=== PATIENT | female | born 1990 | race Caucasian/White ===

== ENCOUNTER → 2016-12-17 | Outpatient (CLI) | payer OTHER | LOC: MOB LAB 09:22 | PROVIDERS: ATTEND Physician Assistant Medical | DX: L29.8 Other pruritus (principal) | CPT/HCPCS: 87480; 87510; 87660 ==

== ENCOUNTER 2018-08-30 17:13 | Inpatient (IN) ==
[2018-08-30] MEDS ORDERED: Sodium Chloride 0.9% 1,000 ML PRIMARY IV ONE (17:29)
[2018-08-30] MEDS ORDERED: MORPHINE SULFATE 2 MG/1 ML IVP ONE (17:29)
[2018-08-30] MEDS ORDERED: ONDANSETRON 4 MG/2 ML VIAL IVP ONE (17:29)
--- NOTE | 2018-08-30 17:29 | PDOC ---
Abdomen/Flank HPI - General Chief Complaint: Abdomen Pain Stated Complaint: ABD PAIN, BLOATING Date Seen by Provider: 08/30/18 Time Seen by Provider: 17:25 Source: POSITIVE: Patient Exam Limitations: POSITIVE: No limitations Nurse's Notes Reviewed & Considered: Yes - History of Present Illness Initial Comments: The patient is a 28-year-old female who presents to the emergency department with complaints of increased abdominal pain and bloating. She does have a history of Crohn's and has required previous resection of the terminal ileum and cecum in 2013. She was recently started on a new medication for her Crohn's. She states that she started to develop some increased abdominal pain 3 or 4 days ago. This has progressively worsened and she has become progressively more bloated. She did have one episode of emesis earlier today. She also reported some low-grade fever with a temperature of 99.7 at home. She denies any blood in the stool however states that she has a lot of cramping and often times only has a small amount of stool. She denies urinary symptoms. Other than the previous bowel resection, she has not had any other abdominal surgeries. She states that she has not experienced pain to this level since she had her original surgery. She currently rates her pain an 8 out of 10. - Patient Home Medications Home Medications: Home Medications Ustekinumab [Stelara] 130 mg IV ONCE 08/30/18 - Patient Allergies Allergies/Adverse Reactions: Allergies Allergy/AdvReac Type Severity Reaction Status Date / Time No Known Allergies Allergy Verified 08/30/18 17:25 Past Medical History - heen HEENT History: Denies History Cardiovascular History: Denies History Respiratory History: Denies History Gastrointestinal History: Crohn's Genitourinary History: Denies History Endocrine History: Denies History Musculoskeletal History: Denies History Prosthesis or Implant: No Neurological History: Denies History Blood Disorders: Denies History Psychiatric History: Denies History Cancer History: Denies History History of MDRO: No Alcohol Use: Rarely In the Past 12 Months, Have Used or Abuse Any Substance: None Previous Surgical History: Yes Type / Date of Surgery: "ileostomy" with removal of parts of colon, no bag. Likely a Resection. Anesthesia Reactions: No Malignant Hyperthermia: No Significant Family History: No pertinent family hx Past Medical History Reviewed: Reviewed - No Changes ROS - Limitations ROS Limitations: No Limitations Constitution: REPORTS: Fever (Temp of 99.7 at home) Cardiovascular: REPORTS: Denies Cardiac Symptoms Respiratory: REPORTS: Denies Resp Symptoms Neurological: REPORTS: Denies Neuro Symptoms Gastrointestinal: REPORTS: Abdominal Pain, Nausea, Vomitting, Other (Bloating). DENIES: Diarrhea, Black Stools, Bloody Stools Musculoskeletal: REPORTS: Denies MS Symptoms Genitourinary: REPORTS: Denies Symptoms Eyes: REPORTS: Denies Symptoms ENT: REPORTS: Denies Symptoms Skin: DENIES: Rash Abdominal/Flank Pain PE - General Appearance General Appearance: POSITIVE: Alert, Cooperative, No Acute Distress - HEENT HEENT: POSITIVE: Head Inspection Nml, Eyes Inspection Nml, Ears Inspection Nml, Nose Inspection Nml, Pharynx Inspect. Nml - Neck Neck: POSITIVE: Normal Inspection. NEGATIVE: Lymphadenopathy - Respiratory Respiratory: POSITIVE: No Respiratory Distress, Breath Sounds Normal - Cardiovascular Cardiovascular: POSITIVE: Regular Rate and Rhythm, Heart Sounds Normal Peripheral Pulses: Dorsalis-pedis (R): 2+, Dorsalis-pedis (L): 2+ - Abdomen Additional Abdominal Details: The patient's abdomen is soft, she does have diffuse abdominal tenderness which is most prominent in the right mid abdomen, no guarding or rebound tenderness, bowel sounds are present although hypoactive. 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 Lab Results Reviewed by Me: Yes CBC and BMP: 08/30/18 17:24 08/30/18 17:24 - Patient's Progress MDM / ED Course: The patient was rating her pain an 8 out of 10 on arrival. Her vital signs were otherwise unremarkable. An IV was established and she did receive 1 L bolus of normal saline as well as morphine 2 mg IV and Zofran 4 mg IV for pain and nausea. She did have some mild relief in pain with administration of medications. Blood work reveals a white count of 13,000 and CRP of 1.4. Other blood tests are essentially unremarkable. CT scan of the abdomen and pelvis shows thickened mucosal with decreased lumen diameter of the bowel in the rectum and distal sigmoid colon with associated dilated and fluid-filled colon and distal small bowel per radiologist. Findings were discussed with the patient. Her CT findings are consistent with a Crohn's flare in the rectum and distal sigmoid colon with associated partial obstruction. The patient was able to pass some liquid stool after her CT scan. The patient was discussed with Dr. Pimentel. He recommended medical management. I subsequently spoke with Dr. Lopez and he evaluated the patient here in the emergency department and has made the decision to admit her for further treatment. - Consult Counseled: POSITIVE: Patient, Family, RE: Lab Results, RE: Radiology Results, RE: DX, RE: Need for F/U Patient Care Time - Estimated PCT Patient Care Time (In Minutes): 35 Vital Signs - VS Reviewed Vital Signs Reviewed: Yes Discharge Clinical Impression: Abdominal pain Crohn's disease Qualifiers: Gastrointestinal tract location: small intestine Digestive disease complication type: unspecified complication Qualified Code(s): K50.019 - Crohn's disease of small intestine with unspecified complications Condition: Fair Date Decision to Admit to Inpatient: 08/30/18 Time Decision to Admit to Inpatient: 20:00
[2018-08-30 17:35] LABS: BASOPHILS # (AUTO) 0.03 10*3/UL; BASOPHILS % (AUTO) 0.2 % (0-1); EOSINOPHILS # (AUTO) 0.05 10*3/UL; EOSINOPHILS % (AUTO) 0.4 % (0-8); Hematocrit [HCT] 47.8 % (37.0-47.0); Hemoglobin [HGB] 16.3 g/dL (12.0-16.0); MEAN CORPUSCULAR HEMOGLOBIN 27.6 PG (27-31); MEAN CORPUSCULAR HGB CONC 34.1 g/dL (33-37); MONOCYTES % (AUTO) 5.2 % (5-15); NEUTROPHILS % (AUTO) 83.6 % (50-80)
[2018-08-30 17:43] LABS: BLOOD UREA NITROGEN 15 mg/dL (7-22); BUN/CREATININE RATIO 18.75 (6-20); LIPASE 116 IU/L (23-300); SERUM ALBUMIN 5.2 g/dL (3.5-4.8)
[2018-08-30 18:04] LABS: PLATELET MORPHOLOGY COMMENT NORMAL MORPHOLOGY (NORM); RBC MORPHOLOGY COMMENT NORMAL MORPHOLOGY (NORM); WBC MORPHOLOGY COMMENT NORMAL MORPHOLOGY (NORM)
[2018-08-30 18:51] LABS: BILIRUBIN,URINE NEGATIVE (NEG); CLARITY,URINE CLEAR (CLEAR); COLOR,URINE YELLOW (Y); GLUCOSE, URINE (UA) NEGATIVE (NEG); OCCULT BLOOD,URINE NEGATIVE (NEG); PROTEIN,URINE NEGATIVE (NEG); UROBILINOGEN,URINE 0.2 EU/dL (0.2)
[2018-08-30 18:52] LABS: URINE SAMPLE TYPE CLEAN CATCH URINE
--- NOTE | 2018-08-30 19:17 | DI ---
CT ABDOMEN SCAN WITH IV CONTRAST, 08/30/2018 5:30 PM : Clinical History: Abdominal pain. According to my discussion with the emergency room physician, this patient has a diagnosis of Crohn's disease and apparently had resection of the distal/terminal ileum and cecum/proximal ascending colon for Crohn's disease. Previous Exam: None at this facility. IV Contrast: 70 mL of Isovue 300. Oral Contrast: No oral contrast ordered. Rectal Contrast: No rectal contrast ordered. Lungs: No infiltrate or effusion. Liver: Normal. Gallbladder: There are 2 laminated calculi measuring about 10 mm in diameter without evidence of acut e cholecystitis. Stomach: The stomach and proximal small bowel up to the junction between the jejunum and ileum are co mpletely decompressed. Adrenal Glands: Normal. Spleen: Mild splenomegaly. Pancreas: Normal. Kidneys: Normal size, shape, position and contour. No hydronephrosis or hydroureter. No renal or uret eral calculi. Masses: None. Lymph Nodes: Normal. Ascites: No ascites. Free Air: None. Spine: Normal lower thoracic and lumbar spine. READING: The stomach and small bowel from the duodenum to the jejunum are completely decompressed. The ileum i s described below but is abnormal. The remainder of the exam is normal. CT PELVIS SCAN WITH IV CONTRAST, 08/30/2018 5:30 PM: Clinical History: See above. Previous Exam: None at this facility. Contrast: Same bolus used for CT scans of the abdomen. Masses: No masses or enhancing lesions. Ascites: None. Free Air: None. Lymph Nodes: No adenopathy. Appendix: Status post apparent resection of the cecum or proximal ascending colon with anastomosis to the distal ileum. Small Bowel: As noted above, the duodenum and jejunum are completely decompressed. The ileum to the a nastomosis is dilated and filled with fluid. No abnormal bowel wall enhancement is noted. Colon: The entire remaining portion of the colon is completely filled with fluid to the sigmoid-recto sigmoid junction and those portions of colon do not show any abnormal enhancement. The rectosigmoid a nd rectum show enhancement of the mucosa along with thickening of the bowel wall producing a "rigid" appearance. This enhancement and bowel wall thickening is consistent with active Crohn's disease. Uterus: Small but normal. Ovaries: There may be a 3 cm cyst of the left ovary. The right ovary is normal. Bladder: Normal. Hernias: None. Bony Pelvis: Normal sacrum, pelvic bones, and hips. READIN. Abnormal enhancement of the rectal and rectosigmoid mucosa with thickening of the bowel wall and narrowing of the lumen producing a "rigid" appearance of that section of large bowel. These changes w ould represent active inflammatory bowel disease consistent with the clinical diagnosis of Crohn's di sease. 2. There is complete filling of the ileum and the colon with fluid with complete decompression of th e stomach, duodenum, and jejunum. Presumably, the active site of Crohn's disease is preventing perist alsis in the rectosigmoid and rectum causing this retention of fluid in the colon and ileum. 3. Probable 3 cm cyst of the left ovary.
--- NOTE | 2018-08-30 20:31 | PDOC ---
HPI - History of Present Illness Date of Service: 08/30/18 Time of Service: 20:26 Chief Complaint: abdominal pain History of Present Illness: This is a very pleasant 28 YO female with Crohn's disease s/p prior terminal ileum resection with reanastomosis who recently started on stelara about 4 weeks ago. She comes in accompanied by her significant other stating that she has had onset of abdominal pain, bloating, and lack of bowel movements that started around Friday of this past week. No fevers. Has not been able to eat solid foods with loss of appetite since Friday. Vomited once prior to coming to ER. The pain was severe enough that she tried anti-inflammatories at home with no help and also tried morphine her in the ER without resolution of her pain. She states she was finally able to have a bowel movement (loose diarrhea) here today. She had an episode of oral ulcers in May of 2018. She thinks she has had inflammatory changes for the last 6-9 months. She was not aware of a local GI group and has been getting her Crohn's disease care from [facility] in [place], which is where she is originally from. She does not smoke or drink alcohol. A CT scan in the emergency room shows fluid filled colon and some of the small intestine with decompressed stomach, duodenum, and most of the jejunum. There was not mention of any mass or stricture on the CT scan. Past Medical History Medical History: 1. Crohn's disease s/p terminal ileum resection. Surgical History: 1. terminal ileum resection, laproscopic procedure. Pertinent Family History: mother diagnosed with Crohn's as well Past Social History: does not smoke, rarely drinks. 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 has a signifiant other for past 4 years, no children. Tobacco Use: Never Smoker In the Past 12 Months, Have Used or Abuse Any of the Following Substance: None Alcohol Use: Occasionally Medication / Allergies Home Medications: Home Medications Medication Instructions Recorded Confirmed Ustekinumab [Stelara] 130 mg IV ONCE 08/30/18 08/30/18 Allergies/Adverse Reactions: Allergies Allergy/AdvReac Type Severity Reaction Status Date / Time No Known Allergies Allergy Verified 08/30/18 17:25 Review of Systems - Review of Systems All Systems: Reviewed & No Additional Complaints Except as Stated (12 system review, exceptions included that patient had been on thyroid medication but she stopped.) Exam - Vitals Vital Signs: Vital Signs Temperature 98.3 F Temperature Source Temporal Artery Scan Pulse Rate [Pulse Oximeter 106 Right] Respiratory Rate 16 Blood Pressure [Left Arm] 128/93 Pulse Ox 97 Oxygen Delivery Method Room Air Height 5 ft 2 in Weight 118 lb - General General Appearance: No Acute Distress, Cooperative - Head Head Exam: Normal Inspection, Normocephalic, Atraumatic - Eye Eye Exam: POSITIVE: No Scleral Icterus - ENT ENT Exam: POSITIVE: Mucous Membranes Moist - Neck Neck Exam: Normal Inspection, No Tenderness, No Lymphadenopathy, No Thyromegaly, JVP is not Raised - Respiratory Respiratory Exam: POSITIVE: Clear to Auscultation - Bilaterally, Breathing Non Labored - Cardiovascular Cardiovascular Exam: POSITIVE: RRR, No Murmur, No Clicks, No Gallops, No Rubs, No JVD - GI/Abdominal GI/Abdominal Exam: POSITIVE: Normal Bowel Sounds, Soft Additional GI/Abdominal Exam Details: minimal, if any, distension some pain to the patient in palpation of lower abdominal quadrants. - Rectal Rectal Exam: POSITIVE: Deferred - External Exam: POSITIVE: Deferred Exam: POSITIVE: Deferred - Extremities Extremities Exam: POSITIVE: No Clubbing Present, No Edema Present, No Cyanosis Present - Back Back Exam: POSITIVE: No CVA Tenderness - Neurological Neurological Exam: POSITIVE: Alert, Oriented x 3, No Facial Droop, Speech Intact / Clear, Moves All Extremities Equally - Psychiatric Psychiatric Exam: POSITIVE: Normal Affect, Normal Mood Results - Labs CBC and BMP: 08/30/18 17:24 08/30/18 17:24 Additional Lab Results: Laboratory Results 08/30/18 08/30/18 08/30/18 17:24 17:24 17:24 WBC 13.51 H RBC 5.90 H Hgb 16.3 H Hct 47.8 H MCV 81.0 MCH 27.6 MCHC 34.1 RDW Std Deviation 40.9 RDW Coeff of Edgar 14.1 Plt Count 360 H MPV 9.0 Immature Gran % (Auto) 0.2 Neut % (Auto) 83.6 H Lymph % (Auto) 10.4 Worth % (Auto) 5.2 Eos % (Auto) 0.4 Baso % (Auto) 0.2 Immature Gran # (Auto) 0.03 Neut # (Auto) 11.30 Lymph # (Auto) 1.40 Worth # (Auto) 0.70 Eos # (Auto) 0.05 Baso # (Auto) 0.03 WBC Morphology Comment Normal morphology Plt Morphology Comment Normal morphology RBC Morph Comment Normal morphology Sodium 143 Potassium 4.0 Chloride 100 Carbon Dioxide 26 Anion Gap 17 BUN 15 Creatinine 0.8 Estimated GFR > 60 BUN/Creatinine Ratio 18.75 Glucose 113 H Calculated Osmolality 297.0 H Calcium 9.7 Total Bilirubin 2.1 H AST 38 ALT 42 Alkaline Phosphatase 118 C-Reactive Protein 1.4 H Total Protein 9.6 H Albumin 5.2 H Globulin 4.4 H Albumin/Globulin Ratio 1.10 L Amylase 89 Lipase 116 Serum HCG, Qual Negative Ur Collection Type Urine Color Urine Clarity Urine pH Ur Specific [place] Urine Protein Urine Glucose (UA) Urine Ketones Urine Occult Blood Urine Nitrate Urine Bilirubin Urine Urobilinogen Ur Leukocyte Esterase Ur Culture Indicated? 08/30/18 18:46 WBC RBC Hgb Hct MCV MCH MCHC RDW Std Deviation RDW Coeff of Edgar Plt Count MPV Immature Gran % (Auto) Neut % (Auto) Lymph % (Auto) Worth % (Auto) Eos % (Auto) Baso % (Auto) Immature Gran # (Auto) Neut # (Auto) Lymph # (Auto) Worth # (Auto) Eos # (Auto) Baso # (Auto) WBC Morphology Comment Plt Morphology Comment RBC Morph Comment Sodium Potassium Chloride Carbon Dioxide Anion Gap BUN Creatinine Estimated GFR BUN/Creatinine Ratio Glucose Calculated Osmolality Calcium Total Bilirubin AST ALT Alkaline Phosphatase C-Reactive Protein Total Protein Albumin Globulin Albumin/Globulin Ratio Amylase Lipase Serum HCG, Qual Ur Collection Type Clean catch urine Urine Color Yellow Urine Clarity Clear Urine pH 6.0 Ur Specific [place] 1.005 Urine Protein Negative Urine Glucose (UA) Negative Urine Ketones 40 Urine Occult Blood Negative Urine Nitrate Negative Urine Bilirubin Negative Urine Urobilinogen 0.2 Ur Leukocyte Esterase Negative Ur Culture Indicated? Culture not set - Imaging Status: Image Reviewed by Me (CT scan, on my view, lots of fluid in the colon. I read/reviewed the radiology report as well.) Assessment and Plan - Patient Problems (1) Crohn's disease Current Visit: No Status: Chronic Code(s): K50.90 - Crohn's disease, u nspecified, without complications Qualifiers: Gastrointestinal tract location: small intestine Digestive disease complication type: unspecified complication Qualified Code(s): K50.019 - Crohn's disease of small intestine with unspecified complications - Assessment / Plan Additional Assessment/Plan Details: admit IV fluids IV steroids start sulfasalazine labs in AM try IV tylenol for pain to avoid peristalsis issues with narcotics avoid antibiotics (no proof per AGA guidelines that flagyl reverses Crohn's exacerbations) I did speak with GI in [facility] and they recommended 48 hours of therpay conservatively, and if no improvement, then may need surgery (question stricture, etc.) try to arrange outpatient follow up with GI in [place] and also with colo rectal surgery in [place], [place], if this acute episode resolves. no NSAIDs--known to worsen exacerbations per AGA guidelines. patient agrees to proceed
[2018-08-30] MEDS ORDERED: ONDANSETRON 4 MG/2 ML VIAL IVP PRN (20:43)
[2018-08-30] MEDS ORDERED: methylPREDNISolone 40 MG/1 ML VIAL IVP ONE (20:43)
[2018-08-30] MEDS ORDERED: CALCIUM CARBONATE 500 MG (TUMS) CHEWABLE TABLET PO PRN (20:43)
[2018-08-30] MEDS ORDERED: LIDOCAINE W/ SODIUM BICARB 0.5 ML SYR SUBD PRN (20:43)
[2018-08-30] MEDS: D5-1/2NS + 20mEq KCL 1,000 ML PRIMARY IV SCH (21:00)
[2018-08-30] MEDS: Acetaminophen 1000mg Inj 1,000 MG/100 ML VIAL IV PRN (21:01)
[2018-08-30] MEDS: SULFASALAZINE 500 MG TABLET PO SCH (21:13)
[2018-08-31] MEDS: SULFASALAZINE 500 MG TABLET PO SCH ×2 (03:30→08:43)
[2018-08-31 04:44] LABS: BASOPHILS # (AUTO) 0.01 10*3/UL; BASOPHILS % (AUTO) 0.2 % (0-1); EOSINOPHILS # (AUTO) 0.01 10*3/UL; EOSINOPHILS % (AUTO) 0.2 % (0-8); Hematocrit [HCT] 39.3 % (37.0-47.0); Hemoglobin [HGB] 13.4 g/dL (12.0-16.0); LYMPHOCYTES # (AUTO) 0.67 10*3/uL; MEAN CORPUSCULAR HEMOGLOBIN 27.7 PG (27-31); MEAN CORPUSCULAR HGB CONC 34.1 g/dL (33-37); MEAN CORPUSCULAR VOLUME 81.4 FL (81-99); MEAN PLATELET VOLUME 9.1 FL (7.4-12.2); MONOCYTES # (AUTO) 0.12 10*3/UL (0.3-0.8); MONOCYTES % (AUTO) 2.6 % (5-15); NEUTROPHILS # (AUTO) 3.76 10*3/UL; NEUTROPHILS % (AUTO) 82.2 % (50-80); RED BLOOD COUNT 4.83 10^6/uL (4.20-5.40)
[2018-08-31 05:07] LABS: PLATELET MORPHOLOGY COMMENT NORMAL MORPHOLOGY (NORM); RBC MORPHOLOGY COMMENT NORMAL MORPHOLOGY (NORM); WBC MORPHOLOGY COMMENT NORMAL MORPHOLOGY (NORM)
[2018-08-31] MEDS: D5-1/2NS + 20mEq KCL 1,000 ML PRIMARY IV SCH (05:26)
[2018-08-31] MEDS: Acetaminophen 1000mg Inj 1,000 MG/100 ML VIAL IV PRN (05:26)
[2018-08-31 06:54] VITALS: RESP 18; O2SAT 98
[2018-08-31] MEDS ORDERED: methylPREDNISolone 125 MG/2 ML VIAL IVP SCH (09:00)
[2018-08-31 11:12] VITALS: BP 100/65; TEMP 97.2
--- NOTE | 2018-08-31 11:17 | DCSUMMARY ---
Hospitalization Summary Admit Date: 08/30/2018 Discharge Date: 08/31/18 Primary Diagnosis:: Crohn's disease exacerbation Hospital Course: This very pleasant 28-year-old female that has had Crohn's disease for some time. She had a terminal ileum removal with reanastomosis in the past done laparoscopically at [facility]. She has been living in [place] for the last couple of years, but was not aware that there was a gastrology group here in town. Recently she started stelara to help control her Crohn's disease after failing Humira and Remicade in the past. She took her first dose around August 06, but came in yesterday with worsened abdominal pain, bloating, lack of bowel movement, and nausea and vomiting. She was admitted, placed on steroids, IV fluids, and by the morning had a bowel movement, had significant relief and the pressure in her abdomen, no vomiting overnight, and was ready to go home earlier than I would've expected. There was no mass or obstruction on the CT scan, and most of the inflammatory changes appeared in the distal colon and rectosigmoid colon. There were some in the small bowel, but not nearly as much as the rectosigmoid colon. The GI biofire profile was negative. I spoke with [facility] in [place], [place], and they will call the patient with an appointment to establish care with a local drawer hardware worker. We'll provide the patient with the CT scan on a disc as well as her records so that she can get these to her doctor at [facility] as well. We will send her home on both prednisone and sulfasalazine to try and improve this acute exacerbation of Crohn's disease and get her back to a maintenance phase. Given the overall improvements in the patient's condition, and the fact that she did not have any chest pain, shortness breath, nausea or vomiting and her abdominal pain was significantly improved and she had no bloating today, patient is ready to go home. Assessment and Plan: 1. As per discharge assessments noted 2. Disposition: Patient is discharged home 3. Condition on discharge, stable and improved. 4. Diet: regular diet, resume gradually 5. Activities: resume normal activities 6. Follow-Up: 1. Primary care physician when necessary 2. [facility] in the next 2 weeks. They will call the patient with an appointment time 7. Medications at the Time of Discharge: Home Medications Medication Instructions Recorded Confirmed Ustekinumab [Stelara] 130 mg IV ONCE 08/30/18 08/30/18 Sulfasalazine 500 mg PO Q6H #120 tablet 08/31/18 predniSONE Tab [Deltasone Tab] 60 mg PO DAILY #42 tab 08/31/18 8. Time, care, counseling and coordination of care for this discharge is greater than 30 minutes. Exam - Vitals Vital Signs: Vital Signs Temperature 97.2 F Temperature Source Temporal Artery Scan Pulse Rate [Pulse Oximeter 76 Right] Pulse Rate [right finger] 88 Pulse Rate 97 Respiratory Rate 18 Blood Pressure [Right Arm] 100/65 Blood Pressure [Left Arm] 100/56 Blood Pressure 120/101 Pulse Ox [right finger] 96 Pulse Ox 98 Oxygen Delivery Method Room Air Height 5 ft 2 in Weight 117 lb 9.6 oz - General General Appearance: No Acute Distress, Cooperative - Eye Eye Exam: POSITIVE: No Scleral Icterus - ENT ENT Exam: POSITIVE: Mucous Membranes Moist - Respiratory Respiratory Exam: POSITIVE: Clear to Auscultation - Bilaterally, Breathing Non Labored - Cardiovascular Cardiovascular Exam: POSITIVE: RRR, No Murmur, No Clicks, No Gallops, No Rubs, No JVD - GI/Abdominal GI/Abdominal Exam: POSITIVE: Normal Bowel Sounds, Non Tender, Non Distended, Soft - Extremities Extremities Exam: POSITIVE: No Clubbing Present, No Edema Present, No Cyanosis Present - Neurological Neurological Exam: POSITIVE: Alert, Oriented x 3, No Facial Droop, Speech Intact / Clear, Moves All Extremities Equally - Psychiatric Psychiatric Exam: POSITIVE: Normal Affect, Normal Mood Data Peritnent Studies: Laboratory Results 08/30/18 08/30/18 08/30/18 17:24 17:24 17:24 WBC 13.51 H RBC 5.90 H Hgb 16.3 H Hct 47.8 H MCV 81.0 MCH 27.6 MCHC 34.1 RDW Std Deviation 40.9 RDW Coeff of Edgar 14.1 Plt Count 360 H MPV 9.0 Immature Gran % (Auto) 0.2 Neut % (Auto) 83.6 H Lymph % (Auto) 10.4 Weld % (Auto) 5.2 Eos % (Auto) 0.4 Baso % (Auto) 0.2 Immature Gran # (Auto) 0.03 Neut # (Auto) 11.30 Lymph # (Auto) 1.40 Weld # (Auto) 0.70 Eos # (Auto) 0.05 Baso # (Auto) 0.03 WBC Morphology Comment Normal morphology Plt Morphology Comment Normal morphology RBC Morph Comment Normal morphology Sodium 143 Potassium 4.0 Chloride 100 Carbon Dioxide 26 Anion Gap 17 BUN 15 Creatinine 0.8 Estimated GFR > 60 BUN/Creatinine Ratio 18.75 Glucose 113 H Calculated Osmolality 297.0 H Calcium 9.7 Total Bilirubin 2.1 H AST 38 ALT 42 Alkaline Phosphatase 118 C-Reactive Protein 1.4 H Total Protein 9.6 H Albumin 5.2 H Globulin 4.4 H Albumin/Globulin Ratio 1.10 L Amylase 89 Lipase 116 Vitamin B12 Serum Folate Serum HCG, Qual Negative Ur Collection Type Urine Color Urine Clarity Urine pH Ur Specific [place] Urine Protein Urine Glucose (UA) Urine Ketones Urine Occult Blood Urine Nitrate Urine Bilirubin Urine Urobilinogen Ur Leukocyte Esterase Ur Culture Indicated? 08/30/18 08/31/18 08/31/18 18:46 04:22 04:22 WBC 4.58 L RBC 4.83 Hgb 13.4 Hct 39.3 MCV 81.4 MCH 27.7 MCHC 34.1 RDW Std Deviation 40.0 RDW Coeff of Edgar 13.8 Plt Count 294 MPV 9.1 Immature Gran % (Auto) 0.2 Neut % (Auto) 82.2 H Lymph % (Auto) 14.6 Weld % (Auto) 2.6 L Eos % (Auto) 0.2 Baso % (Auto) 0.2 Immature Gran # (Auto) 0.01 Neut # (Auto) 3.76 Lymph # (Auto) 0.67 Weld # (Auto) 0.12 L Eos # (Auto) 0.01 Baso # (Auto) 0.01 WBC Morphology Comment Normal morphology Plt Morphology Comment Normal morphology RBC Morph Comment Normal morphology Sodium Potassium Chloride Carbon Dioxide Anion Gap BUN Creatinine Estimated GFR BUN/Creatinine Ratio Glucose Calculated Osmolality Calcium Total Bilirubin AST ALT Alkaline Phosphatase C-Reactive Protein Total Protein Albumin Globulin Albumin/Globulin Ratio Amylase Lipase Vitamin B12 579 Serum Folate > 20.0 H Serum HCG, Qual Ur Collection Type Clean catch urine Urine Color Yellow Urine Clarity Clear Urine pH 6.0 Ur Specific [place] 1.005 Urine Protein Negative Urine Glucose (UA) Negative Urine Ketones 40 Urine Occult Blood Negative Urine Nitrate Negative Urine Bilirubin Negative Urine Urobilinogen 0.2 Ur Leukocyte Esterase Negative Ur Culture Indicated? Culture not set Procedures: [address] [facility] [place] [address] PH: DD: [phone] FAX: [phone] ~DIAGNOSTIC IMAGING REPORT~ Patient: RADHA HUNTER : 1990 Sex: F Age: 28 Exam Name: CT Abdomen/Pelvis W Contrast Exam Date: 08/30/18 Report # : [id number] CPT Code: 45291 EMR/MR #: [id number] Ordering: MAE MELÉNDEZ Admiting: Primary: Magaly Davidson DNP Attending: Signed CT ABDOMEN SCAN WITH IV CONTRAST, 08/30/2018 5:30 PM : Clinical History: Abdominal pain. According to my discussion with the emergency room physician, this patient has a diagnosis of Crohn's disease and apparently had resection of the distal/terminal ileum and cecum/proximal ascending colon for Crohn's disease. Previous Exam: None at this facility. IV Contrast: 70 mL of Isovue 300. Oral Contrast: No oral contrast ordered. Rectal Contrast: No rectal contrast ordered. Lungs: No infiltrate or effusion. Liver: Normal. Gallbladder: There are 2 laminated calculi measuring about 10 mm in diameter without evidence of acute cholecystitis. Stomach: The stomach and proximal small bowel up to the junction between the jejunum and ileum are completely decompressed. Adrenal Glands: Normal. Spleen: Mild splenomegaly. Pancreas: Normal. Kidneys: Normal size, shape, position and contour. No hydronephrosis or hydroureter. No renal or ureteral calculi. Masses: None. Lymph Nodes: Normal. Ascites: No ascites. Free Air: None. Spine: Normal lower thoracic and lumbar spine. READING: The stomach and small bowel from the duodenum to the jejunum are completely decompressed. The ileum is described below but is abnormal. The remainder of the exam is normal. CT PELVIS SCAN WITH IV CONTRAST, 08/30/2018 5:30 PM: Clinical History: See above. Previous Exam: None at this facility. Contrast: Same bolus used for CT scans of the abdomen. Masses: No masses or enhancing lesions. Ascites: None. Free Air: None. Lymph Nodes: No adenopathy. Appendix: Status post apparent resection of the cecum or proximal ascending colon with anastomosis to the distal ileum. Small Bowel: As noted above, the duodenum and jejunum are completely decompressed. The ileum to the anastomosis is dilated and filled with fluid. No abnormal bowel wall enhancement is noted. Colon: The entire remaining portion of the colon is completely filled with fluid to the sigmoid-rectosigmoid junction and those portions of colon do not show any abnormal enhancement. The rectosigmoid and rectum show enhancement of the mucosa along with thickening of the bowel wall producing a "rigid" appearance. This enhancement and bowel wall thickening is consistent with active Crohn's disease. Uterus: Small but normal. Ovaries: There may be a 3 cm cyst of the left ovary. The right ovary is normal. Bladder: Normal. Hernias: None. Bony Pelvis: Normal sacrum, pelvic bones, and hips. READIN. Abnormal enhancement of the rectal and rectosigmoid mucosa with thickening of the bowel wall and narrowing of the lumen producing a "rigid" appearance of that section of large bowel. These changes would represent active inflammatory bowel disease consistent with the clinical diagnosis of Crohn's disease. 2. There is complete filling of the ileum and the colon with fluid with complete decompression of the stomach, duodenum, and jejunum. Presumably, the active site of Crohn's disease is preventing peristalsis in the rectosigmoid and rectum causing this retention of fluid in the colon and ileum. 3. Probable 3 cm cyst of the left ovary. Dictated By: 08/30/18 113 ZAHRA MORRIS MD. Signed By: 08/30/18 253 ZAHRA MORRIS MD. Patient Problems - Patient Problem List (1) Crohn's disease Current Visit: Yes Status: Chronic Code(s): K50.90 - Crohn's disease, unspecified, without complications Qualifiers: Gastrointestinal tract location: small intestine Digestive disease complication type: unspecified complication Qualified Code(s): K50.019 - Crohn's disease of small intestine with unspecified complications Category: Medical
== END 2018-08-31 12:00 | disposition home or self-care (01) | DRG 387 ==
LOC: ER 17:13 → MED/SURG 20:06
PROVIDERS: ADMIT Family Medicine; ATTEND Family Medicine